=== PATIENT | male | born 1940 | race Caucasian/White ===

== ENCOUNTER 2021-03-21 14:57 | Emergency (ER) | payer OTHER, MEDICARE ==
[~2021-03-21] VITALS: Ht 172.7 cm; Wt 72.6 kg
--- NOTE | 2021-03-21 15:10 | NUR ---
PT TO BED 4 FOR EVALUATION.
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
--- NOTE | 2021-03-21 15:20 | NUR ---
ER at bedside examining patient.
[2021-03-21 15:21] VITALS: BP_SYST 138
--- NOTE | 2021-03-21 17:08 | NUR ---
Pt in [facility], comfortable, no complaints
[2021-03-21] MEDS ORDERED: HYDR-3917 PO (17:32)
[2021-03-21 17:50] VITALS: BP_SYST 165
--- NOTE | 2021-03-21 18:02 | NUR ---
Patient given written and verbal discharge instructions and verbalizes understanding. ER MD discussed with patient the results and treatment provided. Patient in stable condition. ID arm band removed. Rx of norco given. Patient educated on pain management and to follow up with PMD. Pain Scale 0/10. Opportunity for questions provided and answered. Medication side effect fact sheet provided.
== END 2021-03-21 17:50 | disposition home or self-care (01) ==
LOC: SED 14:57
DX: S20.211A Contusion of right front wall of thorax, initial encounter (principal); I10 Essential (primary) hypertension; Z79.899 Other long term (current) drug therapy; V49.49XA Driver injured in collision with other motor vehicles in traffic accident, initial encounter; Y93.89 Activity, other specified; Y92.481 Parking lot as the place of occurrence of the external cause; Y99.8 Other external cause status
CPT/HCPCS: 71250-TC; 76376; 93005; 99284